=== PATIENT | female | born 1995 | race Caucasian/White ===

== ENCOUNTER 2024-01-25 07:24 | Outpatient (CLI) | payer BC ==
--- NOTE | 2024-01-25 12:28 | XRAY Report ---
PROCEDURE: Chest 2V INDICATIONS: ACUTE COUGH TECHNIQUE: 2 views of the chest were acquired. COMPARISON: None. FINDINGS: Surgical changes and devices: None. Lungs and pleura: No dense consolidation or pleural effusion. Low lung volumes Mediastinum: Normal heart size Bones and chest wall: Unremarkable IMPRESSION: No acute radiographic abnormality. Low lung volumes. Reviewed by: Devon Faria MD on 01/25/2024 12:27 PM PDT Approved by: Devon Faria MD on 01/25/2024 12:27 PM PDT Station ID: [id number]
== END 2024-01-25 07:25 | disposition home or self-care (01) ==
LOC: DI 07:24
PROVIDERS: ATTEND Physician Assistant Medical
DX: R05.1 Acute cough (principal)